=== PATIENT | female | born 1950 | race Caucasian/White ===

== ENCOUNTER 2016-11-07 11:48 | Outpatient (CLI) | payer MEDICARE ==
[~2016-11-07 11:48] MED LIST: AMARYL 4MG. TAB4 MG PO; BACTRIM DS 8001 TA1 PO; DICLOFENAC 50MG50 MG PO; DICLOFENAC SODI75 M2 PO; FLONASE 50 MCG16 GM; GLIMEPIRIDE 2MG2 MG PO; LEVAQUIN500 MG PO; LEVOTHYROXIN0.025 M1 PO; LEVOTHYROXIN0.025 M3 PO; LISINOPRIL/HCTZ1 TA3 FT; LISINOPRIL/HCTZ1 TA3 PO; MECLIZINE 25MG25 MG PO; MELOXICAM15 MG PO; METFORMIN 500M500 M1 PO; METFORMIN500 MG PO; PERCOCET 5/3251 EACH PO; PHENERGAN25 M3 PO; TRIAMCINOL15 GM/TUBE TP; VISTARIL25 MG PO; VOLTAREN75 MG PO
[2016-11-07 12:01] VITALS: BP 158/69
== END 2016-11-07 12:50 | disposition home or self-care (01) ==
LOC: COP 11:48
DX: N39.0 Urinary tract infection, site not specified (principal)

== ENCOUNTER 2016-12-15 06:45 | Day surgery (SDC) | payer MEDICARE ==
[2016-12-15 09:04] VITALS: BP 182/86
== END 2016-12-15 08:53 | disposition home or self-care (01) ==
LOC: SDC 06:45
PROVIDERS: Ophthalmology
PROC: 08RJ3JZ Replacement of Right Lens with Synthetic Substitute, Percutaneous Approach (ICD-10-PCS; principal; 2016-12-15 08:30)
DX: H26.9 Unspecified cataract (principal)
CPT/HCPCS: V2632